=== PATIENT | male | born 1935 | race Caucasian/White ===

== ENCOUNTER 2016-09-24 22:05 | Observation (INO) | payer MEDICARE ==
[2016-09-24 22:11] VITALS: BMI 27.3
[2016-09-24 22:14] VITALS: BP 186/83; PULSE 68; RESP 16; TEMP 97.8; O2SAT 96
[2016-09-24] MEDS ORDERED: Sodium Chloride 0.9% 1,000 ML IV STA (22:51)
[2016-09-24] MEDS ORDERED: Iohexol 240 (50 ml) PO ONE (23:00)
[2016-09-24 23:05] LABS: BASO # 0.1 K/uL (0.0-0.2); BASO % 0.7 % (0.0-2.0); EOS # 0.1 K/uL (0.0-0.7); EOS % 1.6 % (0.0-4.0); HEMOGLOBIN 15.3 g/dL (12.0-18.0); LYMPH # 1.5 K/uL (1.0-4.3); MEAN CELL VOLUME 93.8 fl (80.0-94.0); MEAN PLATELET VOLUME 10.6 fl (7.2-11.7); MONO % 13.1 % (0.0-10.0); NEUT # 5.2 K/uL (1.8-7.0); NEUT % 65.6 % (50.0-75.0); RBC 4.94 Mil/uL (4.40-5.90); RED CELL DISTRIBUTION WIDTH 13.4 % (11.5-14.5); WHITE BLOOD COUNT 7.9 K/uL (4.8-10.8)
[2016-09-24 23:12] LABS: ALB/GLOB RATIO 1.2 (1.0-2.1); ALT/SGPT 35 U/L (21-72); AST/SGOT 26 U/L (17-59); BLOOD UREA NITROGEN 15 mg/dl (9-20); CALCIUM 9.6 mg/dL (8.4-10.2); GFR AFRICAN-AMERICAN > 60; GFR NON-AFRICAN AMERICAN > 60; LIPASE 101 U/L (23-300)
[2016-09-24 23:51] LABS: URINE BILIRUBIN NEGATIVE (NEGATIVE); URINE BLOOD NEGATIVE (NEGATIVE); URINE CLARITY CLEAR (Clear); URINE COLOR STRAW (YELLOW); URINE GLUCOSE (UA) NEG (Normal); URINE LEUKOCYTE ESTERASE NEG Leu/uL (Negative); URINE NITRATE NEGATIVE (NEGATIVE); URINE PROTEIN NEGATIVE (NEGATIVE); URINE UROBILINOGEN 0.2-1.0 mg/dL (0.2-1.0)
--- NOTE | 2016-09-24 23:57 | ED PDOC ---
HPI: Abdomen Time Seen by Provider: 09/24/16 22:10 Chief Complaint (Nursing): Abdominal Pain Chief Complaint (Provider): Abdominal Pain History Per: Patient History/Exam Limitations: no limitations Onset/Duration Of Symptoms: Worse Since (today), Other (x several weeks) Outside of [place] travel?: No Current Symptoms Are (Timing): Still Present Location Of Pain/Discomfort: LUQ, LLQ Associated Symptoms: Diarrhea (intermittent), Urinary Symptoms (frequency). denies: Fever, Vomiting Additional Complaint(s): 80 year old male presents to ED with complaints of lower abdominal pain for several weeks and has a past medical history of HTN, CAD, hypercholesterolemia, and DM. Patient states that the abdominal pain worsened today and radiates to his back. (-) fever or vomiting. (+) slight intermittent diarrhea and urinary frequency. PCP: Lucy Domingo Past Medical History Reviewed: Historical Data, Nursing Documentation, Vital Signs Vital Signs: Last Vital Signs Temp 97.8 F 09/24/16 22:11 Pulse 68 09/24/16 22:11 Resp 16 09/24/16 22:11 BP 186/83 H 09/24/16 22:11 Pulse Ox 96 09/25/16 04:18 - Medical History PMH: CAD, Diabetes, HTN, Hypercholesterolemia Denies: No Chronic Diseases - Surgical History Surgical History: Coronary Stent Denies: No Surg Hx - Family History Family History: States: No Known Family Hx - Living Arrangements Living Arrangements: With Family - Social History Current smoker - smoking cessation education provided: No Ex-Smoker (has not smoked in the last 12 months): No Alcohol: None Drugs: Denies - Home Medications Home Medications: Ambulatory Orders Medication Instructions Recorded Aspirin [Aspirin EC] 81 mg PO DAILY 02/22/14 Clopidogrel [Plavix] 75 mg PO DAILY 02/22/14 Losartan/Hydrochlorothiazide 1 tab PO DAILY 02/22/14 [Hyzaar 25 mg-100 mg] Metformin Hydrochloride [Metformin 500 mg PO DAILY 02/22/14 HCl] Metoprolol Tartrate [Lopressor] 50 mg PO DAILY 02/22/14 Dicyclomine [Bentyl] 20 mg PO Q12 PRN #20 tab 09/25/16 - Allergies Allergies/Adverse Reactions: Allergies Allergy/AdvReac Type Severity Reaction Status Date / Time No Known Allergies Allergy Unverified 12/04/14 02:35 Review of Systems ROS Statement: Except As Marked, All Systems Reviewed And Found Negative Constitutional: Negative for: Fever Gastrointestinal: Positive for: Abdominal Pain (lower abdominal pain), Diarrhea. Negative for: Vomiting Genitourinary Male: Positive for: Frequency Musculoskeletal: Positive for: Back Pain (abdominal pain radiates to back) Physical Exam - Reviewed Nursing Documentation Reviewed: Yes Vital Signs Reviewed: Yes - Physical Exam Appears: Positive for: Non-toxic, No Acute Distress Skin: Positive for: Normal Color, Warm, Dry Eye Exam: Positive for: Normal appearance ENT: Positive for: Normal ENT Inspection Neck: Positive for: Normal, Supple Cardiovascular/Chest: Positive for: Regular Rate, Rhythm. Negative for: Murmur Respiratory: Positive for: Normal Breath Sounds. Negative for: Respiratory Distress Gastrointestinal/Abdominal: Positive for: Soft, Tenderness (slight lower abdominal tenderness) Back: Positive for: Normal Inspection Extremity: Positive for: Normal ROM. Negative for: Deformity Neurologic/Psych: Positive for: Alert, Oriented. Negative for: Motor/Sensory Deficits - Laboratory Results Result Diagrams: 09/24/16 23:03 09/24/16 23:03 - ECG O2 Sat by Pulse Oximetry: 96 (RA) Pulse Ox Interpretation: Normal Medical Decision Making Medical Decision Makin Initial impression: abdominal pain Initial plan: * CTA A/P * Labs * Lipase * Morphine 2mg IV * NS IV * Iohexol 50mL PO * Pepcid 20mg IVP * ED OBS ADMISSION * UA * Re-eval * All further documentation will take place in ED OBS section of chart. Scribe Attestation: Documented by Bee Brito acting as a scribe for Brennen Key MD. Scribe Attestation: All medical record entries made by the Scribe were at my direction and personally dictated by me. I have reviewed the chart and agree that the record accurately reflects my personal performance of the history, physical exam, medical decision making, and the department course for this patient. I have also personally directed, reviewed, and agree with the discharge instructions and disposition. ED OBSERVATION Date of observation admission: 09/24/16 Time of observation admission: 22:50 - Observation admission statement Patient is being placed in observation because:: Length of stay due to awaited CT and lab work - Goals of Observation Goals of observation are:: CT and lab results - Progress Note Progress Note: 09/24/16 2320 Daughter states that patient's in 2013 and that patient has been depressed since * Crisis evaluation Disposition - Clinical Impression Clinical Impression: Abdominal pain, Cholelithiasis - Patient ED Disposition Is Patient to be Admitted: Transfer of Care - Disposition Disposition: Transfer of Care Disposition Time: 23:20 Condition: STABLE Patient Signed Over To: Tyrel Rodriguez Handoff Comments: Pending CT and crisis eval - Pt Status Changed To: Hospital Disposition Of: Observation
--- NOTE | 2016-09-25 00:07 | ED PDOC ---
- Laboratory Results Result Diagrams: 09/24/16 23:03 09/24/16 23:03 - ECG O2 Sat by Pulse Oximetry: 96 (RA) Medical Decision Making Medical Decision Makin Patient signed out to me from Dr. Key pending CT and crisis eval. Scribe Attestation: Documented by Bee Brito acting as a scribe for Tyrel Rodriguez MD. MD Scribe Attestation: All medical record entries made by the Scribe were at my direction and personally dictated by me. I have reviewed the chart and agree that the record accurately reflects my personal performance of the history, physical exam, medical decision making, and the department course for this patient. I have also personally directed, reviewed, and agree with the discharge instructions and disposition. Disposition - Clinical Impression Clinical Impression: Abdominal pain, Cholelithiasis - POA Present On Arrival: None - Disposition Disposition: Hospitalized as Observation Patient Disposition Time: 22:50 Condition: STABLE ED OBSERVATION Discharge: Yes Date of observation admission: 09/24/16 Time of observation admission: 22:50 - Observation admission statement Patient is being placed in observation because:: CT and crisis eval pending - Goals of Observation Goals of observation are:: CT results and crisis eval - Progress Note Progress Note: 09/25/16 00:07 Patient's vitals are stable. 09/25/16 01:34 CT FINDINGS Cardiomegaly. Hypoventilatory changes at the lung bases. The liver, spleen, pancreas and adrenal glands demonstrate no acute abnormalities. Cholelithiasis. The kidneys are symmetric with no evidence of hydronephrosis. Bilateral renal cysts, largest is in the inferior pole the left kidney measuring 6.5 cm. Subcentimeter hypoattenuating foci which are too small to characterize. Atherosclerosis. Evaluation of bowel limited with enteric contrast within the stomach and small bowel only at the time of imaging. No small bowel obstruction. Normal caliber appendix. Colonic diverticula. Focus of descending/sigmoid colon and appears to demonstrate mild associated inflammation. Question focus of fluid within a diverticulum, however, cannot exclude abscess within bowel wall, coronal image 59, axial image 55. No ascites. No free air. Osseous structures intact. IMPRESSION: Evaluation of bowel limited without enteric contrast in the colon at the time of imaging. Colonic diverticula. Focus of descending/sigmoid colon and appears to demonstrate mild associated inflammation. Question focus of fluid within a diverticulum, however, cannot exclude abscess within bowel wall, coronal image 59, axial image 55. Correlate clinically for diverticulitis. Delayed imaging of bowel may aid in evaluation. Cardiomegaly. Cholelithiasis. Additional details as above. Correlate clinically. Followup as warranted. 09/25/16 02:35 Patient has been cleared by crisis and is stable for discharge home. Will follow up with PCP (Jose L) and GI (Kiah) within 2 days. Dx: cholelithiasis, abdominal pain Condition: stable
[2016-09-25] MEDS ORDERED: Sodium Chloride 0.9% 50 ML IV ONE (00:29)
[2016-09-25] MEDS ORDERED: Iohexol 300 100 ML IJ ONE (00:29)
--- NOTE | 2016-09-25 01:31 | CT ---
EXAM: CT Abdomen and Pelvis With Intravenous Contrast CLINICAL HISTORY: 80 years old, male; Pain; Abdominal pain; Localized; Lower; Additional info: Abd pain lower, history of diverticulitis TECHNIQUE: Axial computed tomography images of the abdomen and pelvis with intravenous contrast. This CT exam was performed using one or more of the following dose reduction techniques: automated exposure control, adjustment of the mA and/or kV according to patient size, and/or use of iterative reconstruction technique. Coronal and sagittal reformatted images were created and reviewed. CONTRAST: 95 mL of [id number] administered intravenously. COMPARISON: CT - ABDOMEN^ABD ROUTINE WO (ADULT) 02/18/2010 8:11:46 AM FINDINGS: Cardiomegaly. Hypoventilatory changes at the lung bases. The liver, spleen, pancreas and adrenal glands demonstrate no acute abnormalities. Cholelithiasis. The kidneys are symmetric with no evidence of hydronephrosis. Bilateral renal cysts, largest is in the inferior pole the left kidney measuring 6.5 cm. Subcentimeter hypoattenuating foci which are too small to characterize. Atherosclerosis. Evaluation of bowel limited with enteric contrast within the stomach and small bowel only at the time of imaging. No small bowel obstruction. Normal caliber appendix. Colonic diverticula. Focus of descending/sigmoid colon and appears to demonstrate mild associated inflammation. Question focus of fluid within a diverticulum, however, cannot exclude abscess within bowel wall, coronal image 59, axial image 55. No ascites. No free air. Osseous structures intact. IMPRESSION: Evaluation of bowel limited without enteric contrast in the colon at the time of imaging. Colonic diverticula. Focus of descending/sigmoid colon and appears to demonstrate mild associated inflammation. Question focus of fluid within a diverticulum, however, cannot exclude abscess within bowel wall, coronal image 59, axial image 55. Correlate clinically for diverticulitis. Delayed imaging of bowel may aid in evaluation. Cardiomegaly. Cholelithiasis. Additional details as above. Correlate clinically. Followup as warranted.
== END 2016-09-25 02:36 | disposition home or self-care (01) ==
LOC: H.ER 22:05 → H.EROBSV 22:50
PROVIDERS: ADMIT Emergency Medicine; ATTEND Emergency Medicine
DX: R10.9 Unspecified abdominal pain (principal); E11.9 Type 2 diabetes mellitus without complications; E78.00 Pure hypercholesterolemia, unspecified; I25.10 Atherosclerotic heart disease of native coronary artery without angina pectoris; I10 Essential (primary) hypertension; I51.7 Cardiomegaly; K80.20 Calculus of gallbladder without cholecystitis without obstruction; Z79.02 Long term (current) use of antithrombotics/antiplatelets; Z79.82 Long term (current) use of aspirin; Z79.899 Other long term (current) drug therapy; Z95.5 Presence of coronary angioplasty implant and graft; Z79.84 Long term (current) use of oral hypoglycemic drugs
CPT/HCPCS: 74177; 80053; 81003; 83690; 85025; 96374; 96375; 99283; G0378; J2270; J7040; Q9966; Q9967